=== PATIENT | male | born 1955 | race Caucasian/White ===

== ENCOUNTER 2016-03-30 08:15 | Outpatient (CLI) | payer OTHER ==
[2016-03-30 12:36] LABS: #Basophils 0.1 thou/uL (0.0-0.2); #Eosinphils 0.1 thou/uL (0.0-0.7); #Lymphocytes 2.3 thou/uL (1.20-3.40); #Monocytes 0.5 thou/uL (0.11-0.59); %Basophils 1.3 % (0.0-1.0); %Eosinophils 1.6 % (0.0-10.0); %Monocytes 5.9 % (0.0-10.0); ALT (SGPT) 44 U/L (0-55); AST (SGOT) 30 U/L (5-34); Alkaline Phosphatase 71 U/L (40-150); Anion Gap 16 mmol/L (10-20); BUN (Urea Nitrogen) 16 mg/dL (8.4-25.7); Bilirubin, Direct 0.3 mg/dL (0.1-0.3); Bilirubin, Total 0.7 mg/dL (0.2-1.2); Calc. Creatinine Clearance 0 mL/min (70-130); Calcium 9.3 mg/dL (7.8-10.44); Carbon Dioxide 24 mmol/L (22-29); Chloride 103 mmol/L (98-107); Estimated GFR-MDRD 65; Hematocrit 45.1 % (42.0-52.0); LDL Cholesterol, Calculated 112 mg/dL; Mean Platelet Volume 8.6 fL (7.4-10.4)
[2016-03-30 13:04] LABS: Hemoglobin A1c 6.7 % (4.0-6.0)
== END 2016-03-30 08:16 | disposition home or self-care (01) ==
LOC: NAVSJIPCSP 08:15
PROVIDERS: ATTEND Family Medicine
DX: E11.9 Type 2 diabetes mellitus without complications (principal); I10 Essential (primary) hypertension; Z79.899 Other long term (current) drug therapy
CPT/HCPCS: 36415; 80048; 80061; 80076; 83036; 84443; 85025; G0103